=== PATIENT | female | born 1965 | race Caucasian/White ===

== ENCOUNTER 2023-10-05 19:05 | Emergency (ER) | payer SELFPAY ==
[2023-10-05] MEDS ORDERED: CEFAZOLIN SODIUM 1 GM/VIAL ONE (19:37)
[2023-10-05] MEDS ORDERED: TDAP (DIPHTH,PERTUSS(ACELL),TET VAC) 0.5 ML VIAL IMVAC ONE (19:38)
[2023-10-05] MEDS ORDERED: NA CHLORIDE 0.9% 100 ML ONE (19:38)
[2023-10-05 19:58] LABS: Absolute Eosinophils 0.2 K/uL (0-0.5); Absolute Lymphocytes (CBC) 2.2 K/uL (0.7-4.9); Absolute Monocytes 0.6 K/uL (0.1-1.3); Absolute Neutrophil 4.8 K/uL (1.8-8.0); Basophils % 0.6 % (0-1.3); Eosinophils % 2.1 % (0-4.4); Hematocrit 37.4 % (36.0-45.0); Hemoglobin 12.6 g/dL (12.0-15.0); Lymphocytes % 28.6 % (15.3-44.8); MCH 30.9 pg (27.0-35.0); MCHC 33.6 g/dL (32.0-36.0); Monocytes % 7.3 % (3.3-12.3); Neutrophils % 61.4 % (41.7-73.7); Nucleated Red Blood Cells % 0.1 % (0-0); Platelets 285 thou/uL (152-406); RBC Red Blood Cell Count 4.07 M/uL (3.86-4.86); Red Cell Distribution Width 14.2 % (12.1-15.2)
[2023-10-05 20:01] LABS: PT Prothrombin Time 10.9 SECONDS (9.4-12.5); PTT, Activated Partial Thromb 33.3 SECONDS (24.3-36.9); Protime INR 0.99
[2023-10-05 20:10] LABS: Anion Gap 7.5 mEq/L (5.0-15.0); Potassium 3.5 mEq/L (3.5-5.1)
--- NOTE | 2023-10-05 20:40 | RAD REPORT ---
EXAM DESCRIPTION: CT - Upper Ext Angio - 10/05/2023 8:13 pm CLINICAL HISTORY: LUE radial artery injury COMPARISON: No comparisons TECHNIQUE: CTA of the left upper extremity performed with IV contrast. All CT scans are performed using dose optimization technique as appropriate and may include automate d exposure control or mA/KV adjustment according to patient size. FINDINGS: Fell off of the radial artery at the level of the carpus as seen on images 97, 98, series 401. The ulnar artery is intact. No evidence of active bleeding. No radiopaque foreign body. No fractures identified. IMPRESSION: Occlusion of the radial artery at the level of the carpus presumably from reported lacer ation and either thrombosis/dissection. No active bleeding identified. The ulnar artery is intact.
--- NOTE | 2023-10-05 20:48 | EDPHYS ---
Physician Documentation [facility] Name: Arash Weber Age: 57 yrs Sex: Female : 1965 Arrival Date: 10/05/2023 Time: 19:05 Bed 19 Private MD: ED Physician Peyman Daugherty HPI: 10/04 19:38 This 57 yrs old Female presents to ER via Ambulatory with complaints of Stab ec2 Wound - Hand. 19:38 Patient arrives today for evaluation of a laceration to the left wrist. States that she ec2 had pulsatile bleeding. Patient reports that she is not up-to-date of her last tetanus shot. Patient reports that she was working with a paring knife and subsequently accidentally cut herself.. Historical: - Allergies: 19:26 Compazine; vc1 19:26 Sulfa (Sulfonamide Antibiotics); vc1 - Home Meds: 19:26 None [Active]; vc1 - PMHx: 19:26 None; vc1 - PSHx: 19:26 Partial Hysterectomy; vc1 - Immunization history:: Adult Immunizations up to date. - Infectious Disease History:: Denies. - Social history:: Smoking status: Patient denies any tobacco usage or history of. ROS: 19:38 Constitutional: as per hpi ec2 Exam: 19:38 Constitutional: GEN: NAD Head: atraumatic Eyes: EOMI Ears: External ears are ec2 normal. CV: regular rate LUNGS: no respiratory distress ABD: non-distended SKIN: Laceration noted to the left wrist, 1 cm in size, pulsatile bleeding MSK: no evidence of trauma NEURO: moves all extremities equally Vital Signs: 19:19 BP 162 / 81; Pulse 75; Resp 18; Temp 98.2(TE); Pulse Ox 98% on R/A; Weight 79.38 kg; oe Height 5 ft. 9 in. ; Pain 10/10; 21:29 BP 126 / 73; Pulse 74; Resp 18; Pulse Ox 100% on R/A; mb9 19:19 Body Mass Index 25.84 (79.38 kg, 175.26 cm) oe 19:19 Pain Scale: Adult oe Laceration: 19:38 Wound Repair of 1cm ( 0.4in ) subcutaneous laceration to left hand. Distal ec2 neuro/vascular/tendon intact. Wound prep: Moderate cleansing. Skin closed with 1 4-0 Prolene using horizontal mattress sutures and sterile technique. Patient tolerated well. MDM: 19:29 Patient medically screened. ec2 19:38 Data reviewed: vital signs. ED course: Patient arrives today for evaluation of a ec2 laceration to the left wrist. Pulsatile bleeding noted on my examination. I applied a tourniquet for several minutes and subsequently performed a [id number] stitch to the radial artery. Upon taking the tourniquet down, had cessation of bleeding, no expanding hematoma, no pulsatile bleeding. Will obtain lab work, update patient's tetanus status, give the patient Ancef and obtain a CT scan of the arterial system in the left upper extremity. Suspect radial artery injury.. 20:44 ED course: CBC shows no anemia, metabolic profile is reassuring, patient is O+, ec2 coagulation profile unremarkable, upper extremity shows occlusion of the radial artery. Will transfer patient to trauma center. . 21:01 ED course: I discussed case with hand surgery at transferring facility who agrees to ec2 help manage this patient, states that he does not foresee arterial injury repair however is agreeable to seeing the patient in the emergency department. After the patient regarding plan and they are agreeable.. 10/04 19:28 Order name: CBC with Diff; Complete Time: 20:44 ec2 10/04 19:28 Order name: BMP; Complete Time: 20:44 ec2 10/04 19:28 Order name: Type And Screen; Complete Time: 20:44 ec2 10/04 19:28 Order name: PT-INR; Complete Time: 20:44 ec2 10/04 19:28 Order name: Ptt, Activated; Complete Time: 20:44 ec2 10/04 19:32 Order name: Upper Ext Angio; Complete Time: 20:44 EDMS Administered Medications: 19:45 Drug: Boostrix Tdap IM 0.5 ml IM once; as a single dose Route: IM; Site: right deltoid; mb9 20:13 Follow up: Response: No adverse reaction mb9 20:20 Drug: ceFAZolin IVPB 1 grams IVPB once Route: IVPB; Site: right antecubital; mb9 20:52 Follow up: Response: No adverse reaction; IV Status: Completed infusion mb9 Disposition: 20:46 Critical Care:. ec2 Disposition Summary: 10/05/23 20:47 Transfer Ordered Notes: Transfer Location: [facility] ec2 Reason: Higher level of care ec2 Condition: Stable ec2 Problem: new ec2 Symptoms: have improved ec2 Accepting Physician: transferring doc(10/05/23 22:03) vc1 Diagnosis - Laceration of radial artery at wrist and hand level of left arm, initial encounter ec2 Forms: - Medication Reconciliation Form ec2 - SBAR form ec2 Critical care time excluding procedures: 20:46 Critical care time: Bedside Care: 30 minutes, Consultation: 5 minutes, Family ec2 Intervention: 10 minutes. Total time: 45 minutes Signatures: Dispatcher [employer] Genna Swann RN RN vc1 Kori Willoughby RN RN mb9 Peyman Daugherty MD MD ec2 Corrections: (The following items were deleted from the chart) 22:03 20:47 transferring doc ec2 vc1
--- NOTE | 2023-10-05 20:48 | ER ---
Nurse's Notes [facility] Name: Arash Weber Age: 57 yrs Sex: Female : 1965 Arrival Date: 10/05/2023 Time: 19:05 Bed 19 Private MD: Diagnosis: Laceration of radial artery at wrist and hand level of left arm, initial encounter Presentation: 10/04 19:18 Coronavirus screen: At this time, the client does not indicate any symptoms associated mb9 with coronavirus-19. Initial Sepsis Screen: Does the patient meet any 2 criteria? No. Patient's initial sepsis screen is negative. Does the patient have a suspected source of infection? No. Patient's initial sepsis screen is negative. Risk Assessment: Do you want to hurt yourself or someone else? Patient reports no desire to harm self or others. Onset of symptoms was October 05, 2023. 19:18 Acuity: ELIZABETH 3 9 19:18 Method Of Arrival: Ambulatory [facility] 19:24 Chief complaint: Patient states: cut self with pairing knife, blood was squirting out. vc1 Ebola Screen: Patient negative for fever greater than or equal to 101.5 degrees Fahrenheit, and additional compatible Ebola Virus Disease symptoms Patient denies exposure to infectious person. Patient denies travel to an Ebola-affected area in the 21 days before illness onset. No symptoms or risks identified at this time. Triage Assessment: 19:28 General: Appears in no apparent distress. comfortable, Behavior is calm, cooperative. vc1 Injury Description: Laceration sustained to left arm is clean, 0.5 to 2.5 cm long, with pulsatile bleeding. Historical: - Allergies: 19:26 Compazine; vc1 19:26 Sulfa (Sulfonamide Antibiotics); vc1 - Home Meds: 19:26 None [Active]; vc1 - PMHx: 19:26 None; vc1 - PSHx: 19:26 Partial Hysterectomy; vc1 - Immunization history:: Adult Immunizations up to date. - Infectious Disease History:: Denies. - Social history:: Smoking status: Patient denies any tobacco usage or history of. Screenin:17 [facility] ED Fall Risk Assessment (Adult) History of falling in the last 3 months, 9 including since admission No falls in past 3 months (0 pts) Confusion or Disorientation No (0 pts) Intoxicated or Sedated No (0 pts) Impaired Gait No (0 pts) Mobility Assist Device Used No (0 pt) Altered Elimination No (0 pt) Score/Fall Risk Level 0 - 2 = Low Risk Oriented to surroundings, Maintained a safe environment, Educated pt \T\ family on fall prevention, incl call for assistance when getting out of bed. Abuse screen: Denies threats or abuse. Nutritional screening: No deficits noted. Tuberculosis screening: No symptoms or risk factors identified. Assessment: 12:20 Reassessment: No changes from previously documented assessment. Patient and/or family mb9 updated on plan of care and expected duration. Pain level reassessed. Patient is alert, oriented x 3, equal unlabored respirations, skin warm/dry/pink. 19:07 General: Appears in no apparent distress. Behavior is calm, cooperative. Pain: mb9 Complains of pain in left arm. Neuro: Downing Agitation-Sedation Scale (RASS): 0 - Alert and Calm Level of Consciousness is awake, alert, obeys commands, Oriented to person, place, time, situation, Appropriate for age. Cardiovascular: Patient's skin is warm and dry. Respiratory: Airway is patent Respiratory effort is even, unlabored, Respiratory pattern is regular, symmetrical. GI: No signs and/or symptoms were reported involving the gastrointestinal system. : No signs and/or symptoms were reported regarding the genitourinary system. EENT: No signs and/or symptoms were reported regarding the EENT system. Derm: Skin is pink, warm \T\ dry. Musculoskeletal: Range of motion: intact in all extremities. Injury Description: Laceration sustained to left forearm. active bleeding noted is 0.5 to 2.5 cm long, bleeding profusely. 19:10 Reassessment: tourniquet applied to pts left arm. mb9 19:20 Reassessment: tourniquet taken off pts arm. No active bleeding noted. mb9 20:20 Reassessment: Patient appears in no apparent distress at this time. No changes from mb9 previously documented assessment. Patient and/or family updated on plan of care and expected duration. Pain level reassessed. Patient is alert, oriented x 3, equal unlabored respirations, skin warm/dry/pink. 21:28 Reassessment: Report given to transferring nurse JOSHUA Fernández. mb9 Vital Signs: 19:19 BP 162 / 81; Pulse 75; Resp 18; Temp 98.2(TE); Pulse Ox 98% on R/A; Weight 79.38 kg; oe Height 5 ft. 9 in. ; Pain 10/10; 21:29 BP 126 / 73; Pulse 74; Resp 18; Pulse Ox 100% on R/A; mb9 19:19 Body Mass Index 25.84 (79.38 kg, 175.26 cm) oe 19:19 Pain Scale: Adult oe ED Course: 19:06 Patient arrived in ED. im 19:13 Peyman Daugherty MD is Attending Physician. ec2 19:15 Assist provider with laceration repair on left arm that was 2.5 cm. or less using mb9 sutures. Set up tray. Performed by Peyman Daugherty MD Dressed with 4X4s, Patient tolerated well. 19:17 Kori Willoughby, RN is Primary Nurse. mb9 19:18 Triage completed. mb9 19:18 Placed in gown. Bed in low position. Call light in reach. Side rails up X 1. Provided mb9 Education on:. Client placed on continuous cardiac and pulse oximetry monitoring. NIBP monitoring applied. 19:25 Arm band placed on. mb9 19:46 Initial lab(s) drawn, by mi, sent to lab. Inserted saline lock: 18 gauge in right mb9 antecubital area, using aseptic technique. Blood collected. 19:53 Ptt, Activated Sent. mb9 19:53 PT-INR Sent. mb9 19:53 Type And Screen Sent. mb9 19:53 BMP Sent. mb9 20:15 Upper Ext Angio In Process Unspecified. EDMS 21:28 Patient transferred, IV remains in place. mb9 10/05 05:31 initiated transfer: 1904 with [facility]. pt was accepted to [facility] ER. christine Moreland [phone] is number for nurse to nurse report. Admin approval given by Clara Delatorre\ [id number]. Administered Medications: 10/04 19:45 Drug: Boostrix Tdap IM 0.5 ml IM once; as a single dose Route: IM; Site: right deltoid; mb9 20:13 Follow up: Response: No adverse reaction mb9 20:20 Drug: ceFAZolin IVPB 1 grams IVPB once Route: IVPB; Site: right antecubital; mb9 20:52 Follow up: Response: No adverse reaction; IV Status: Completed infusion mb9 Medication: 20:20 VIS not applicable for this client. mb9 Outcome: 20:47 ER care complete, transfer ordered by . ec2 21:28 Transferred by ground EMS to [facility], Transfer form completed. X-rays sent mb9 w/ patient. 21:28 Condition: stable 21:28 Instructed on the need for admit, 22:03 Patient left the ED. vc1 Signatures: Dispatcher [employer] EDMS Fito Fraser Vanessa RN RN vc1 Kori Willoughby RN RN mb9 Heide Lin Edwin, MD MD ec2 Lesia Montague [facility]
[2023-10-06 11:27] VITALS: BP 126/73; TEMP 98.2; O2SAT 100
== END 2023-10-05 22:03 | disposition short-term general hospital (02) ==
LOC: ER 19:05
PROC: 0HQGXZZ Repair Left Hand Skin, External Approach (ICD-10-PCS; principal; 2023-10-05)
DX: S65.112A Laceration of radial artery at wrist and hand level of left arm, initial encounter (principal)
CPT/HCPCS: 36415; 73206; 80048; 85025; 85610; 85730; 86850; 86900; 86901; 96365; 96372; 99285; J0690; Q9967